=== PATIENT | female | born 2000 | race African-American/Black ===

== ENCOUNTER 2024-08-17 14:01 | Observation (INO) | payer OTHER ==
[~2024-08-17] VITALS: Ht 167.6 cm; Wt 78.9 kg
[2024-08-17] MEDS ORDERED: PREN-96 PO (14:54)
--- NOTE | 2024-08-17 23:54 | DVHDS2 ---
Obstetrics Discharge Summary Obstetrics Discharge Summary Date of Admission: Aug 17, 2024 Date of Discharge: Aug 17, 2024 Reason For Admission: Observational/Evaluation, Others (34 weeks rule out labor) Procedures: NST Discharge Diagnosis: Others (reasuring heart tones) Discharge Information: Activity (Unrestricted), Diet (Routine), Medications (None), Instructions (Routine), Discharge to (Home), Discarge date (08/17/2024) PATTI DUONG DO Aug 17, 2024 23:54
== END 2024-08-17 15:12 | disposition home or self-care (01) ==
LOC: LDRP 14:01 → UNDOADMOB 14:01 → LDRP 14:14
PROVIDERS: ADMIT Obstetrics & Gynecology; ATTEND Obstetrics & Gynecology
DX: O62.9 Abnormality of forces of labor, unspecified (principal); Z98.890 Other specified postprocedural states; Z79.899 Other long term (current) drug therapy; Z3A.34 34 weeks gestation of pregnancy
CPT/HCPCS: 59025; 81002; 94760; G0378